=== PATIENT | female | born 1980 | race African-American/Black ===

== ENCOUNTER 2019-05-27 12:58 | Emergency (ER) | payer MEDICAID ==
[~2019-05-27] VITALS: Ht 172.7 cm; Wt 80.7 kg
[2019-05-27 13:05] VITALS: BP 133/76
--- NOTE | 2019-05-27 13:10 | NUR ---
TRIAGE COMPLETE. VSS. TO LOBBY AWAITNG BED IN ED.
--- NOTE | 2019-05-27 15:21 | NUR ---
38 Y/F PRESENTS TO ED FOR CONTANT CP SINCE YESTERDAY. PT REPORTS 8/10 SHARP PAIN, NON RADIATING. PT ALSO REPORTS SOB SINCE YESTERDAY ON AND OFF. PT REPORTS SIMPLE EVERYDAY TASKS ARE DIFFICULT FOR HER TO COMPLETE. PT DENIES N/V/D OR HEADACHE. MEDICATIONS- DENIES PMH- DENIES
--- NOTE | 2019-05-27 15:22 | NUR ---
DR. KELLEY AT BEDSIDE.
[2019-05-27 15:39] VITALS: BP 133/76
--- NOTE | 2019-05-27 15:40 | NUR ---
Patient discharged with v/s stable. Written and verbal after care instructions given and explained. Patient alert, oriented and verbalized understanding of instructions. Ambulatory with steady gait. All questions addressed prior to discharge. ID band removed. Patient advised to follow up with PMD. Rx of ATARAX,MOTRIN given. Patient educated on indication of medication including possible reaction and side effects. Opportunity to ask questions provided and answered.
== END 2019-05-27 15:40 | disposition home or self-care (01) ==
LOC: MED 12:58
DX: R07.9 Chest pain, unspecified (principal); R06.02 Shortness of breath; F41.1 Generalized anxiety disorder; F17.210 Nicotine dependence, cigarettes, uncomplicated; Z98.890 Other specified postprocedural states
CPT/HCPCS: 99283